=== PATIENT | female | born 1935 | race Caucasian/White ===

== ENCOUNTER 2021-07-17 12:35 | Inpatient (IN) | payer MEDICARE ==
[~2021-07-17] VITALS: Ht 162.6 cm; Wt 81.9 kg
[~2021-07-17 12:35] MED LIST: ASPIRIN EC81 MG PO; CLARITIN10 MG PO; K-DUR20 MEQ PO; LISINOPRIL40 MG PO; MAG-OXIDE 400M400 MG PO; METFORMIN HCL500 MG PO; PLAVIX75 MG PO; PRINIVIL10 MG PO; SYNTHROID50 MCG PO; TENORMIN50 MG PO; TORSEMIDE20 MG PO
[2021-07-17 13:33] LABS: BASOPHIL 0.1 % (0-2); EOSINOPHIL 0.5 % (0-7); HCT 26.7 % (37.0-47.0); HGB 8.6 g/dl (12.5-16.0); LYMPHOCYTE 13.8 % (15-48); MCHC 32.2 g/dL (32.0-36.0); MCV 99.3 fL (78.0-100.0); MONOCYTE 2.4 % (0-12); MPV 9.8 fL (6.0-9.5); NEUTROPHIL 81.2 % (41-80); NRBC 0; PLT 231 K/uL (150-400); RBC 2.69 M/uL (4.20-5.40); RDW 15.1 % (11.5-14.0)
[2021-07-17 13:39] LABS: ALBUMIN 1.8 g/dL (3.4-5.0); BILIRUBIN - TOTAL 0.4 mg/dL (0.2-1.0); BUN/CREAT RATIO (CALC) 27.3 RATIO; CREATININE 2.49 mg/dL (0.51-0.95); GLOBULIN (CALCULATION) 6.3 g/dL; POTASSIUM 3.4 mmol/L (3.5-5.1); TOTAL PROTEIN 8.1 g/dL (6.4-8.2)
[2021-07-17 14:27] LABS: INFLUENZA A NAA NEGATIVE (NEGATIVE)
[2021-07-17 14:28] LABS: CORONAVIRUS 2019 SARS-COV-2 POSITIVE (NEGATIVE)
[2021-07-17 14:59] LABS: BILIRUBIN NEGATIVE (NEGATIVE); BLOOD NEGATIVE Ery/uL (NEGATIVE); CLARITY CLEAR (CLEAR); COLOR YELLOW (YELLOW); GLUCOSE (U) NORMAL (NORMAL); LEUKOCYTES NEGATIVE Leu/uL (NEGATIVE); NITRITE NEGATIVE (NEGATIVE); PROTEIN TRACE (LOW) mg/dL (NEGATIVE); UROBILINOGEN 0.2 mg/dL (0.2-1.0); pH 5.5 (5.0-9.0)
[2021-07-17 15:02] LABS: AMPHETAMINES NEGATIVE (NEGATIVE); BARBITURATES NEGATIVE (NEGATIVE); ECSTASY (MDMA) NEGATIVE (NEGATIVE); MARIJUANA (THC) NEGATIVE (NEGATIVE); METHADONE NEGATIVE (NEGATIVE); OPIATES NEGATIVE (NEGATIVE); OXYCODONE NEGATIVE (NEGATIVE)
[2021-07-17 15:07] LABS: URINARY WBC RARE
[2021-07-17 15:08] LABS: AMORPHOUS URATES CRYSTALS TRACE
[2021-07-17 21:44] LABS: BUN/CREAT RATIO (CALC) 28.6 RATIO; CREATININE 2.45 mg/dL (0.51-0.95); POTASSIUM 3.6 mmol/L (3.5-5.1)
[2021-07-18] MEDS ORDERED: CARAFATE1 GM PO (01:15)
[2021-07-18] MEDS ORDERED: PHENERGAN12.5 M1 PO (01:16)
[2021-07-18] MEDS ORDERED: MOBIC7.5 MG PO (01:18)
[2021-07-18 07:41] LABS: IRON % SATURATION 32.1 %SAT (20-50)
[2021-07-18 08:02] LABS: BASOPHIL 0.1 % (0-2); EOSINOPHIL 0.1 % (0-7); HCT 24.9 % (37.0-47.0); LYMPHOCYTE 11.6 % (15-48); MCH 31.9 pg (25.0-31.0); MCHC 32.1 g/dL (32.0-36.0); MCV 99.2 fL (78.0-100.0); MONOCYTE 2.7 % (0-12); MPV 10.1 fL (6.0-9.5); NEUTROPHIL 79.2 % (41-80); NRBC 0; PLT 218 K/uL (150-400); RBC 2.51 M/uL (4.20-5.40); RDW 15.4 % (11.5-14.0)
[2021-07-18 08:43] LABS: ALBUMIN 1.4 g/dL (3.4-5.0); BILIRUBIN - TOTAL 0.3 mg/dL (0.2-1.0); BUN/CREAT RATIO (CALC) 33.5 RATIO; CREATININE 2.27 mg/dL (0.51-0.95); FOLIC ACID (SERUM) 5.4 ng/mL (8.6-58.9); GLOBULIN (CALCULATION) 5.9 g/dL; MAGNESIUM 2.2 mg/dL (1.8-2.4); PHOSPHORUS 4.5 mg/dL (2.6-4.7); POTASSIUM 3.6 mmol/L (3.5-5.1); TOTAL PROTEIN 7.3 g/dL (6.4-8.2)
[2021-07-19 03:28] LABS: BASOPHIL 0.3 % (0-2); EOSINOPHIL 0 % (0-7); HCT 24.3 % (37.0-47.0); HGB 7.9 g/dl (12.5-16.0); LYMPHOCYTE 9.5 % (15-48); MCH 32.1 pg (25.0-31.0); MCHC 32.5 g/dL (32.0-36.0); MCV 98.8 fL (78.0-100.0); MONOCYTE 5.2 % (0-12); MPV 9.8 fL (6.0-9.5); NEUTROPHIL 80.5 % (41-80); NRBC 0; PLT 206 K/uL (150-400); RBC 2.46 M/uL (4.20-5.40); RDW 15.1 % (11.5-14.0); WBC 6.4 K/uL (4.0-10.5)
[2021-07-19 04:43] LABS: ALBUMIN 1.3 g/dL (3.4-5.0); BILIRUBIN - TOTAL 0.3 mg/dL (0.2-1.0); CREATININE 2.07 mg/dL (0.51-0.95); POTASSIUM 3.5 mmol/L (3.5-5.1); TOTAL PROTEIN 6.3 g/dL (6.4-8.2)
[2021-07-19 15:15] LABS: CREATININE 1.86 mg/dL (0.51-0.95); POTASSIUM 3.3 mmol/L (3.5-5.1)
[2021-07-20 04:02] LABS: BASOPHIL 0.6 % (0-2); EOSINOPHIL 0 % (0-7); HCT 26.6 % (37.0-47.0); HGB 8.1 g/dl (12.5-16.0); LYMPHOCYTE 9.3 % (15-48); MCH 31.3 pg (25.0-31.0); MCHC 30.5 g/dL (32.0-36.0); MCV 102.7 fL (78.0-100.0); MONOCYTE 5.3 % (0-12); NRBC 0.3; PLT 204 K/uL (150-400); RBC 2.59 M/uL (4.20-5.40); RDW 15.4 % (11.5-14.0); WBC 6.7 K/uL (4.0-10.5)
[2021-07-20 04:21] LABS: BUN/CREAT RATIO (CALC) 44.9 RATIO; CREATININE 1.67 mg/dL (0.51-0.95); PHOSPHORUS 2.3 mg/dL (2.6-4.7); POTASSIUM 3.6 mmol/L (3.5-5.1)
[2021-07-21 07:06] LABS: BASOPHIL 0.6 % (0-2); EOSINOPHIL 0 % (0-7); HCT 29.2 % (37.0-47.0); HGB 9.4 g/dl (12.5-16.0); LYMPHOCYTE 3.1 % (15-48); MCH 32.3 pg (25.0-31.0); MCHC 32.2 g/dL (32.0-36.0); MCV 100.3 fL (78.0-100.0); MONOCYTE 6.4 % (0-12); PLT 246 K/uL (150-400); RBC 2.91 M/uL (4.20-5.40); RDW 15.8 % (11.5-14.0); WBC 3.6 K/uL (4.0-10.5)
[2021-07-21 08:05] LABS: ALBUMIN 1.4 g/dL (3.4-5.0); BILIRUBIN - TOTAL 0.3 mg/dL (0.2-1.0); BUN/CREAT RATIO (CALC) 39.4 RATIO; CREATININE 1.93 mg/dL (0.51-0.95); GLOBULIN (CALCULATION) 3.9 g/dL; MAGNESIUM 1.8 mg/dL (1.8-2.4); PHOSPHORUS 1.1 mg/dL (2.6-4.7); POTASSIUM 3.3 mmol/L (3.5-5.1); TOTAL PROTEIN 5.3 g/dL (6.4-8.2)
[2021-07-21 08:16] LABS: BAND 20 % (0-10); LYMPHOCYTE(M) 8 % (15-48); METAMYELOCYTE 2; MONOCYTE(M) 4 % (0-12); MYELOCYTE 1; NEUTROPHILS(M) 65 % (41-80); TOTAL CELL COUNT 100
[2021-07-21 08:17] LABS: NRBC 2; PLATELET ESTIMATE NORMAL; PLATELET MORPHOLOGY CLUMPING
[2021-07-21 08:18] LABS: POLYCHROMASIA SLIGHT
--- NOTE | 2021-07-21 10:38 | NUR ---
07/20/21 CALLED RESPIRATORY REGARDING PATIENT O2 SAT. VENTURI AT 50% WAS PLACED. PATIENT WAS STILL REFUSING TO EAT OR DRINK.
--- NOTE | 2021-07-21 12:06 | NUR ---
PT HEART RATE DECREASED TO 50s THEN 20s THEN ASYSTOLE. RN ASSESSED, NO PULSE. NOTIFIED. DR. DURMMOND PRONOUNCED PT AT 1105. PT WAS A DNR. FAMILY NOTIFIED AND VISITED FAMILY. [facility] TO PICK PT UP.
--- NOTE | 2021-07-21 14:36 | NUR ---
07/21/21 Ms. Villagomez past away today.
--- NOTE | 2021-07-22 10:02 | NUR ---
PATIENT WAS DISCHARGED BEFORE WOUND CARE NURSE COULD DUE ASSESSMENT.
== END 2021-07-21 12:45 | disposition expired | DRG 177 ==
LOC: FER 12:35 → FTCU 14:56
PROVIDERS: Internal Medicine; Nurse Practitioner; ADMIT Internal Medicine
PROC: 8E0ZXY6 Isolation (ICD-10-PCS; principal; 2021-07-17)
PROC: XW033E5 Introduction of Remdesivir Anti-infective into Peripheral Vein, Percutaneous Approach, New Technology Group 5 (ICD-10-PCS; 2021-07-17)
PROC: XW0DXM6 Introduction of Baricitinib into Mouth and Pharynx, External Approach, New Technology Group 6 (ICD-10-PCS; 2021-07-17)
PROC: 5A09457 Assistance with Respiratory Ventilation, 24-96 Consecutive Hours, Continuous Positive Airway Pressure (ICD-10-PCS; 2021-07-17)
DX: U07.1 COVID-19 (principal); J12.82 Pneumonia due to coronavirus disease 2019; J96.01 Acute respiratory failure with hypoxia; I21.4 Non-ST elevation (NSTEMI) myocardial infarction; N17.9 Acute kidney failure, unspecified; Z66 Do not resuscitate; Z51.5 Encounter for palliative care; N18.30 Chronic kidney disease, stage 3 unspecified; I48.0 Paroxysmal atrial fibrillation; E11.22 Type 2 diabetes mellitus with diabetic chronic kidney disease; I12.9 Hypertensive chronic kidney disease with stage 1 through stage 4 chronic kidney disease, or unspecified chronic kidney disease; D63.1 Anemia in chronic kidney disease; L89.322 Pressure ulcer of left buttock, stage 2; L89.312 Pressure ulcer of right buttock, stage 2; E78.5 Hyperlipidemia, unspecified; E89.0 Postprocedural hypothyroidism; Z86.73 Personal history of transient ischemic attack (TIA), and cerebral infarction without residual deficits; Z86.12 Personal history of poliomyelitis; Z85.51 Personal history of malignant neoplasm of bladder; Z98.890 Other specified postprocedural states; Z88.8 Allergy status to other drugs, medicaments and biological substances; Z79.82 Long term (current) use of aspirin; Z79.02 Long term (current) use of antithrombotics/antiplatelets; Z79.84 Long term (current) use of oral hypoglycemic drugs; Z79.890 Hormone replacement therapy; Z79.899 Other long term (current) drug therapy; Z83.3 Family history of diabetes mellitus; Z82.61 Family history of arthritis; Z90.49 Acquired absence of other specified parts of digestive tract; Z90.710 Acquired absence of both cervix and uterus; Z90.89 Acquired absence of other organs
CPT/HCPCS: 36415; 36600; 70450; 71045; 80048; 80053; 80061; 80305; 81001; 82140; 82607; 82728; 82746; 82803; 82962; 83540; 83550; 83605; 83735; 83880; 84100; 84145; 84484; 85025; 93005; 94010; 94640; 94660; 94668; 94762; 97163; 97530-GP; C9113; C9399; J0885; J1100; J1160; J1630; J1650; J2060; J2270; J3360; J7050; J7120; J8540; Q5106; U0002